=== PATIENT | female | born 1950 | race Caucasian/White ===

== ENCOUNTER → 2016-06-16 | Outpatient (CLI) | payer MEDICARE, OTHER | LOC: KOH-I 16:12 | DX: M54.2 Cervicalgia (principal) | CPT/HCPCS: 72050 ==

== ENCOUNTER → 2020-05-11 | Outpatient (CLI) | payer MEDICARE, OTHER ==
[~2020-05-11] MED LIST: ALEVE220 MG PO; ALLERGY RELIEF10 MG PO; ANTIVERT 12.512.5 MG PO; ASPIR 8181 MG PO; AUGMENTIN 875-1 EACH PO; BIOTIN2500 MCG PO; CALCIUM 600 +1 EAC7 PO; CYCLOBENZAPRINE10 MG PO; LANSOPRAZOLE30 MG PO; LISINOPRIL-HCT1 EACH PO; MULTIVITAMINS1 EAC1 PO; PERCOCET 5-3251 EACH PO; STOOL SOFTENER1 EAC2 PO; TYLENOL 500 MG500 MG PO; VITAMIN D310 MC1 PO; ZEBETA 5 MG TAB5 MG PO; ZOCOR 40 MG TAB40 MG PO; ZOFRAN ODT 4 MG4 MG PO; ZOFRAN ODT 4 MG4 MG SL
== END ==
LOC: MAMO 12-11 15:30
DX: Z12.31 Encounter for screening mammogram for malignant neoplasm of breast (principal)
CPT/HCPCS: 77063; 77067

== ENCOUNTER → 2020-10-01 | Day surgery (SDC) | payer MEDICARE, OTHER ==
[~2020-10-01] MED LIST changes: +CITALOPRAM HBR20 MG PO; +LISINOPRIL10 MG PO; +NASAL SPRAY
== END | disposition home or self-care (01) ==
LOC: OR 05:55
PROVIDERS: Surgery
PROC: 0DB78ZX Excision of Stomach, Pylorus, Via Natural or Artificial Opening Endoscopic, Diagnostic (ICD-10-PCS; 2020-10-01)
PROC: 0DB68ZX Excision of Stomach, Via Natural or Artificial Opening Endoscopic, Diagnostic (ICD-10-PCS; principal; 2020-10-01 07:30)
DX: K29.50 Unspecified chronic gastritis without bleeding (principal); K21.9 Gastro-esophageal reflux disease without esophagitis; K31.89 Other diseases of stomach and duodenum; K44.9 Diaphragmatic hernia without obstruction or gangrene; I10 Essential (primary) hypertension; I48.91 Unspecified atrial fibrillation; I49.5 Sick sinus syndrome; G89.29 Other chronic pain; M19.90 Unspecified osteoarthritis, unspecified site; K59.09 Other constipation; I51.89 Other ill-defined heart diseases; E78.00 Pure hypercholesterolemia, unspecified; G47.00 Insomnia, unspecified; G43.909 Migraine, unspecified, not intractable, without status migrainosus; I47.1 Supraventricular tachycardia; Z20.822 Contact with and (suspected) exposure to COVID-19; Z88.5 Allergy status to narcotic agent; Z88.6 Allergy status to analgesic agent; Z88.8 Allergy status to other drugs, medicaments and biological substances; Z79.82 Long term (current) use of aspirin; Z79.51 Long term (current) use of inhaled steroids; Z79.1 Long term (current) use of non-steroidal anti-inflammatories (NSAID); Z79.899 Other long term (current) drug therapy
CPT/HCPCS: J2704; J7030

== ENCOUNTER → 2020-11-29 | Outpatient (CLI) | payer MEDICARE, OTHER ==
[2020-11-29 18:55] LABS: HEMOGLOBIN 13.4 gm/dl (12.3-15.3); RED BLOOD COUNT 4.24 M/UL (4.00-5.10); WHITE BLOOD COUNT 6.6 K/UL (4.5-11.0)
[2020-11-29 19:27] LABS: BUN/CREATININE RATIO 11 (0-10)
== END ==
LOC: LAB 17:59
PROVIDERS: Physician Assistant Surgical
DX: R53.83 Other fatigue (principal); N32.81 Overactive bladder; N39.0 Urinary tract infection, site not specified
CPT/HCPCS: 80053; 81001; 85027; 87086

== ENCOUNTER → 2021-01-11 | Outpatient (CLI) | payer MEDICARE, OTHER | LOC: LAB 16:47 | DX: R30.0 Dysuria (principal) | CPT/HCPCS: 87086 ==

== ENCOUNTER 2021-01-27 14:36 | Observation (INO) | payer MEDICARE, OTHER ==
[~2021-01-27] VITALS: Ht 157.5 cm; Wt 78.5 kg
[2021-01-27 14:57] LABS: HEMOGLOBIN 13.4 gm/dl (12.3-15.3); RED BLOOD COUNT 4.2 M/UL (4.00-5.10)
[2021-01-27 15:21] LABS: BUN/CREATININE RATIO 13 (0-10)
[2021-01-27] MEDS ORDERED: CELEXA 20MG TAB20 MG PO (20:46)
[2021-01-27] MEDS ORDERED: LISINOPRIL5 MG PO (20:46)
[2021-01-27] MEDS ORDERED: LANSOPRAZOLE MC (20:48)
[2021-01-27] MEDS ORDERED: ZEBETA 5 MG TAB5 MG PO (20:49)
[2021-01-27] MEDS ORDERED: BIOTIN2500 MCG PO (20:50)
[2021-01-27] MEDS ORDERED: CALCIUM500 MG PO (20:50)
[2021-01-27] MEDS ORDERED: ALEVE220 MG PO (20:52)
[2021-01-27] MEDS ORDERED: UNISOM25 MG PO (20:54)
[2021-01-27] MEDS ORDERED: ROBAXIN 750 MG750 MG GT (20:55)
[2021-01-28 02:04] LABS: HEMOGLOBIN 11.7 gm/dl (12.3-15.3); WHITE BLOOD COUNT 5.3 K/UL (4.5-11.0)
[2021-01-28 02:11] LABS: RED BLOOD COUNT 3.77 M/UL (4.00-5.10)
[2021-01-28 02:30] LABS: BUN/CREATININE RATIO 13 (0-10)
[2021-01-28] MEDS ORDERED: ZEBETA 5 MG TAB5 MG PO (13:22)
== END 2021-01-28 14:20 | disposition home or self-care (01) ==
LOC: ER1 14:36 → CDU 16:57 → PROG CARE 16:57
PROVIDERS: Nurse Practitioner; Physician Assistant Medical; ADMIT Internal Medicine
DX: R00.0 Tachycardia, unspecified (principal); I10 Essential (primary) hypertension; R07.9 Chest pain, unspecified; R07.89 Other chest pain; E78.5 Hyperlipidemia, unspecified; E66.9 Obesity, unspecified; K21.9 Gastro-esophageal reflux disease without esophagitis; F32.A Depression, unspecified; Z20.822 Contact with and (suspected) exposure to COVID-19; Z79.82 Long term (current) use of aspirin; Z95.0 Presence of cardiac pacemaker
CPT/HCPCS: 36415; 71045; 80048; 80053; 81001; 82550; 82553; 83735; 83874; 83880; 84484; 85025; 85027; 85610; 85730; 93005; G0378; J1160; J2270; J2405; J7030; U0002

== ENCOUNTER 2021-06-25 13:22 | Observation (INO) | payer MEDICARE, OTHER ==
[~2021-06-25] VITALS: Ht 157.5 cm; Wt 73.9 kg
[~2021-06-25 13:22] MED LIST changes: +CALCIUM500 MG PO; +CELEXA 20MG TAB20 MG PO; +FLONASE 0.05% N16 GM; +LANSOPRAZOLE MC; +LISINOPRIL5 MG PO; -NASAL SPRAY; +ROBAXIN 750 MG750 MG GT; +UNISOM25 MG PO
[2021-06-25 13:39] LABS: HEMOGLOBIN 13.9 gm/dl (12.3-15.3); RED BLOOD COUNT 4.45 M/UL (4.00-5.10); WHITE BLOOD COUNT 10.6 K/UL (4.5-11.0)
[2021-06-25 14:06] LABS: BUN/CREATININE RATIO 16 (0-10)
[2021-06-25] MEDS ORDERED: LISINOPRIL5 MG PO (15:32)
[2021-06-25] MEDS ORDERED: ZEBETA 5 MG TAB5 MG PO (15:33)
--- NOTE | 2021-06-26 00:29 | NUR ---
APPROX 2130 RESOURCE RN REPORTED THE HOSPITAL DOES NOT HAVE THE CORRECT MACHINE TO INTERROGATE PT PACEMAKER. [facility] WAS NOTIFIED WELL.
[2021-06-26 02:32] LABS: RED BLOOD COUNT 3.85 M/UL (4.00-5.10); WHITE BLOOD COUNT 6.6 K/UL (4.5-11.0)
[2021-06-26 02:54] LABS: BUN/CREATININE RATIO 19 (0-10)
--- NOTE | 2021-06-26 17:12 | NUR ---
WAS TOLD THIS AM THAT [facility] STATES WE DON'T HAVE THE MACHINE TO INTERROGATE PT'S TYPE OF PACEMAKER. [facility] () NOTIFIED TO CONFIRM THIS AGAIN. AWAITING REPLY, CELSO STATES SHE WILL CHECK IN THE ED TO MAKE SURE.
[2021-06-27 03:17] LABS: RED BLOOD COUNT 3.55 M/UL (4.00-5.10); WHITE BLOOD COUNT 5.2 K/UL (4.5-11.0)
[2021-06-27 03:49] LABS: BUN/CREATININE RATIO 19 (0-10)
[2021-06-27] MEDS ORDERED: LISINOPRIL5 MG PO (09:30)
[2021-06-27] MEDS ORDERED: COREG3.125 MG PO (09:30)
== END 2021-06-27 11:19 | disposition home or self-care (01) ==
LOC: ER1 13:22 → CDU 14:39 → M/S 14:39
PROVIDERS: Emergency Medicine; Internal Medicine; Physician Assistant; ADMIT Internal Medicine
DX: R55 Syncope and collapse (principal); I95.9 Hypotension, unspecified; R07.89 Other chest pain; R11.2 Nausea with vomiting, unspecified; I48.0 Paroxysmal atrial fibrillation; R00.1 Bradycardia, unspecified; I10 Essential (primary) hypertension; E78.5 Hyperlipidemia, unspecified; K21.9 Gastro-esophageal reflux disease without esophagitis; E66.9 Obesity, unspecified; F32.A Depression, unspecified; R06.02 Shortness of breath; J30.2 Other seasonal allergic rhinitis; R32 Unspecified urinary incontinence; Z95.0 Presence of cardiac pacemaker; Z88.6 Allergy status to analgesic agent; Z88.1 Allergy status to other antibiotic agents; Z88.8 Allergy status to other drugs, medicaments and biological substances; Z79.82 Long term (current) use of aspirin; Z90.49 Acquired absence of other specified parts of digestive tract; Z90.710 Acquired absence of both cervix and uterus; Z96.0 Presence of urogenital implants; Z82.49 Family history of ischemic heart disease and other diseases of the circulatory system; Z20.822 Contact with and (suspected) exposure to COVID-19
CPT/HCPCS: ECHO; 36415; 70450; 71045; 80048; 80053; 81001; 82550; 82553; 83605; 83735; 84484; 85025; 85610; 85730; 87040; 93005; 93306; 93880; 99285; G0378; J2405; U0002

== ENCOUNTER → 2021-08-25 | Outpatient (CLI) | payer MEDICARE, OTHER ==
[~2021-08-25] MED LIST changes: +COREG3.125 MG PO
== END ==
LOC: CT 08:23
DX: R31.0 Gross hematuria (principal); N32.3 Diverticulum of bladder
CPT/HCPCS: 36415; 82565; 84520; Q9967

== ENCOUNTER → 2021-08-30 | Outpatient (CLI) | payer MEDICARE, OTHER | LOC: KOH-I 08-29 15:00 | DX: J32.0 Chronic maxillary sinusitis (principal) | CPT/HCPCS: 70486 ==

== ENCOUNTER → 2021-09-22 | Outpatient (CLI) | payer MEDICARE, OTHER | LOC: MAMO 09-19 09:30 | DX: Z12.31 Encounter for screening mammogram for malignant neoplasm of breast (principal) | CPT/HCPCS: 77063; 77067 ==

== ENCOUNTER → 2021-11-22 | Outpatient (CLI) | payer MEDICARE, OTHER | LOC: LAB 14:04 | DX: Z01.812 Encounter for preprocedural laboratory examination (principal); Z20.822 Contact with and (suspected) exposure to COVID-19 | CPT/HCPCS: U0002 ==

== ENCOUNTER → 2021-11-25 | Outpatient (CLI) | payer MEDICARE, OTHER | LOC: NM 07:50 | DX: I47.1 Supraventricular tachycardia (principal); I20.8 Other forms of angina pectoris | CPT/HCPCS: 78452; 93017; A9502; J2785 ==